=== PATIENT | female | born 1995 | race American Indian/Alaskan Native ===

== ENCOUNTER 2017-04-26 03:33 | Emergency (ER) | payer MEDICAID ==
[2017-04-26 04:41] VITALS: BP 147/91
--- NOTE | 2017-04-26 07:43 | Emergency Department Report ---
ED Dysuria HPI - HPI Chief Complaint: Urogenital-Female Stated Complaint: VAG D/C WITH ODOR Time Seen by Provider: 04/26/17 07:13 Duration: 5 Days Location of Discomfort: Urethra (dysuria) Severity: Mild Symptoms: Dysuria: No, Frequency: No, Suprapubic Pain: No, Flank Pain: No, Fever : No, Hematuria: No, Abdominal Pain: No, Previous UTI's: No Other History: obgyn last m. did monostat. and diflucan x 2 and no relief of s/s ED Review of Systems ROS: Stated complaint: VAG D/C WITH ODOR Other details as noted in HPI Comment: All other systems reviewed and negative Genitourinary: discharge ED Past Medical Hx - Past Medical History Previous Medical History?: No - Surgical History Past Surgical History?: Yes Additional Surgical History: Tonsils. C-Sec x 1 - Social History Smoking Status: Never Smoker Substance Use Type: None - Medications Home Medications: Home Medications Medication Instructions Recorded Confirmed Last Taken Type Fluconazole [Diflucan] 150 mg PO DAILY #2 tablet 04/26/17 Unknown Rx metroNIDAZOLE [Flagyl] 500 mg PO Q12HR #20 tab 04/26/17 Unknown Rx Dysuria Exam - Exam General: Vital signs noted. No distress. Alert and acting appropriately. Exam: Yes Moist Mucous Membranes, No CVA Tenderness, No Abdominal Tenderness, No Rigidity or Guarding ED Course Vital Signs 04/26/17 04:32 Temperature 98.5 F Pulse Rate 92 H Respiratory 16 Rate Blood Pressure 147/91 [Right] O2 Sat by Pulse 99 Oximetry - Reevaluation(s) Reevaluation #1: 04/26/17 09:56 to er w several week white vag dc 1 sex partner recent tx w diflucan and flagyl failed bv and yeast on wet prep no fever no abd pain preg neg no dysuria dc home w dc poc ED Medical Decision Making - Medical Decision Making see note - Differential Diagnosis ro std Critical care attestation.: If time is entered above; I have spent that time in minutes in the direct care of this critically ill patient, excluding procedure time. ED Disposition Clinical Impression: Bacterial vaginitis, Yeast vaginitis Disposition: DC-01 TO HOME OR SELFCARE Is pt being admited?: No Does the pt Need Aspirin: No Condition: Stable Instructions: Bacterial Vaginosis (ED), Vulvovaginal Candidiasis (ED) Prescriptions: Fluconazole [Diflucan] 150 mg PO DAILY #2 tablet metroNIDAZOLE [Flagyl] 500 mg PO Q12HR #20 tab Referrals: TIMOTHY DENT MD [Primary Care Provider] - 3-5 Days Forms: STI Treatment and Prevention Time of Disposition: 09:51
[2017-04-26 08:12] LABS: Bilirubin,Urine NEG (Negative); Blood,Urine MOD (Negative); Ketones,Urine NEG (Negative); Leukocyte Esterase,Urine SM (Negative); Mucus,Urine FEW /HPF; Nitrite,Urine NEG (Negative); RBC,Urine < 1.0 /HPF (0.0-6.0); Urobilinogen,Urine < 2.0 mg/dL (<2.0); WBC,Urine < 1.0 /HPF (0.0-6.0)
== END 2017-04-26 10:00 | disposition home or self-care (01) ==
LOC: ED 03:33
DX: B37.3 Candidiasis of vulva and vagina (principal); N76.0 Acute vaginitis; B96.89 Other specified bacterial agents as the cause of diseases classified elsewhere; Z98.890 Other specified postprocedural states
CPT/HCPCS: 81001; 81025; 87210; 87591; 99284